=== PATIENT | female | born 2000 | race Caucasian/White ===

== ENCOUNTER 2020-07-03 14:37 | Outpatient (CLI) | payer BC ==
--- NOTE | 2020-07-03 15:20 | RAD ---
EXAM: 2 views of the lumbosacral spine HISTORY: Low back pain COMPARISON: None FINDINGS: 2 views of the lumbosacral spine shows normal height and alignment of the vertebral bodies and intervertebral discs without fracture or subluxation. No significant degenerative changes are seen. The sacroiliac joints are unremarkable. An IUD is seen in the pelvis. IMPRESSION: No significant lumbar spine abnormality.
--- NOTE | 2020-07-03 15:21 | RAD ---
EXAM: 3 views of the sacroiliac joints HISTORY: Low back and SI pain COMPARISON: None FINDINGS: 3 views of the sacrum shows a symmetric appearance of the sacroiliac joints. No fusion of t he joints is seen. No surrounding erosions are present. No significant sclerosis is seen. An IUD is seen in the pelvis. IMPRESSION: No significant abnormality
--- NOTE | 2020-07-03 15:22 | RAD ---
EXAM: 3 views of the sacrum/coccyx HISTORY: Sacral/coccygeal pain COMPARISON: None FINDINGS: 3 views of the sacrum/coccyx shows no evidence of displaced sacral or coccygeal fracture. T he sacral alae are symmetric. The sacroiliac joints and pubic symphysis are unremarkable. An IUD is seen in the pelvis. IMPRESSION: No evidence of sacral or coccygeal fracture.
== END 2020-07-03 14:38 | disposition home or self-care (01) ==
LOC: BICRAD 14:37
PROVIDERS: ATTEND Family Medicine
DX: M54.16 Radiculopathy, lumbar region (principal)
CPT/HCPCS: 72100; 72202; 72220